=== PATIENT | male | born 1990 | race African-American/Black ===

== ENCOUNTER 2020-08-06 16:29 | Emergency (ER) | payer OTHER ==
[~2020-08-06] VITALS: Ht 167.6 cm; Wt 44.9 kg
[2020-08-06 18:13] LABS: URINE BLOOD 2+ (Negative); URINE CLARITY CLEAR; URINE COLOR YELLOW; URINE GLUCOSE-RANDOM* NEGATIVE (Negative); URINE KETONES TRACE (Negative); URINE LEUKOCYTES-REFLEX NEGATIVE (Negative); URINE NITRITE-REFLEX NEGATIVE (Negative); URINE PROTEIN (DIPSTICK) TRACE (Negative); URINE SPECIFIC GRAVITY >= 1.030 (1.005-1.035)
[2020-08-06 18:20] LABS: ICTOTEST (BILI CONFIRMATORY) Negative (Negative)
[2020-08-06 18:23] LABS: URINE BILIRUBIN NEGATIVE (Negative)
[2020-08-06 18:26] LABS: CASTS None Seen /LPF (None Seen); CRYSTALS None Seen /LPF (None Seen); MUCUS 0-3 Light strn/LPF (None Seen); SQUAMOUS None Seen /LPF (0-3); URINE RBC 3-10 Few /HPF (0-2); URINE WBC-REFLEX 0-5 Rare /HPF (0-5)
[2020-08-06 18:27] LABS: AMORPHOUS URATES Many /LPF (None Seen)
[2020-08-06 19:29] LABS: ABSOLUTE NEUTROPHILS 11.9 thou/uL (1.4-8.2); BASOPHILS 0.7 % (0.0-2.0); EOSINOPHILS 0.8 % (0.0-3.0); HEMATOCRIT 45.9 % (42.0-52.0); MCH 30.7 pg (26.0-34.0); MCHC 32.7 g/dL (28.0-37.0); MCV 93.8 fL (80.0-100.0); MONOCYTES 8.5 % (1.0-8.0); PLATELET COUNT 193 thou/uL (150-400); RBC 4.89 mil/uL (4.50-6.00); RDW 14.4 % (10.5-14.5); WBC 19.5 thou/uL (4.0-11.0)
[2020-08-06 19:41] LABS: CALCIUM 9.1 mg/dL (8.5-10.1); CREATININE 0.7 mg/dL (0.7-1.3); POTASSIUM 3.6 mmol/L (3.5-5.1)
[2020-08-06 19:47] LABS: ALBUMIN 3.9 g/dL (3.4-5.0); TOTAL BILIRUBIN 0.7 mg/dL (0.2-1.0); TOTAL PROTEIN 8.2 g/dL (6.4-8.2)
[2020-08-06] MEDS ORDERED: KEFLEX500 M1 PO (19:55)
[2020-08-06 20:12] VITALS: BP 98/58
--- NOTE | 2020-08-07 07:12 | EKG ---
[address] [address] ELECTROCARDIOGRAM REPORT Name: BAIRON HERNANDEZ Room #: [facility]P [facility] [id number] Admission: 08/06/20 Attend Phys: Discharge: 08/06/20 Date of : 88 Report #: [id number] [facility] ED Test Date: 2020-08-06 Test Time: 17:24:14 Pat Name: BAIRON HERNANDEZ Department: Room: Gender: Chemical Plant Operator: monika : 1990 Requested By: Rojas Robb Order Number: [id number] MD: Adithya Robbins Measurements Intervals Regan Rate: 95 P: 83 SC: 157 QRS: 39 QRSD: 76 T: 52 QT: 334 QTc: 420 Interpretive Statements Sinus rhythm No previous ECG available for comparison Electronically Signed On 08-07-2020 7:12:07 ENVIRONMENTAL INTERN by Adithya Robbins [email or web address] <ELECTRONICALLY SIGNED> By: Adithya Robbins MD, [facility] 08/07/20 0712 1724 1724 Adithya Robbins MD, FACC /EPI
== END 2020-08-06 20:03 | disposition home or self-care (01) ==
LOC: ER 16:29
PROVIDERS: Emergency Medicine
DX: N39.0 Urinary tract infection, site not specified (principal); E43 Unspecified severe protein-calorie malnutrition; R62.7 Adult failure to thrive; Z68.1 Body mass index [BMI] 19.9 or less, adult; Z20.822 Contact with and (suspected) exposure to COVID-19